=== PATIENT | female | born 1970 | race Caucasian/White ===

== ENCOUNTER 2017-03-05 06:01 | Inpatient (IN) | payer BC ==
[~2017-03-05] VITALS: Ht 152.4 cm; Wt 66.2 kg
[2017-03-05] VITALS (7 sets, daily range): BP systolic 85–136; BP diastolic 79–90
[2017-03-05 06:43] LABS: *BILIRUBIN,URIN NEGATIVE (NEGATIVE); *BLOOD, URINE 3+ (NEGATIVE); *CLARITY,URINE CLOUDY (CLEAR); *COLOR,URINE YELLOW (YELLOW); *KETONES,URINE NEGATIVE (NEGATIVE); *PROTEIN,URINE NEGATIVE (NEGATIVE); *UROBILINOGEN,URINE 0.2 E.U./dl (NORMAL); LEUKOCYTE ESTERASE ,URINE 2+ (NEGATIVE); NITRITE, URINE NEGATIVE (NEGATIVE); PH,URINE 5.5 (5.0-8.0); UGLUCOSE NEGATIVE (NEGATIVE)
[2017-03-05 06:44] LABS: *URINE HCG, QUAL NEGATIVE (NEGATIVE)
[2017-03-05 06:58] LABS: BACTERIA,URINE FEW /HPF (NONE SEEN); MUCUS,URINE FEW /LPF (0-FEW); RBC,URINE TNTC /HPF (0-3); SQUAMOUS EPITHELIAL CELL,UR MODERATE /HPF (NONE SEEN)
[2017-03-05 07:04] LABS: BASOPHILS % (AUTO) 0.4 % (0.0-2.0); EOSINOPHILS # (AUTO) 0.3 K/uL (0.0-0.7); EOSINOPHILS % (AUTO) 3.8 % (0.0-7.0); HEMATOCRIT 31.3 % (37-47); HEMOGLOBIN 10.1 G/DL (12.0-16.0); LYMPHOCYTES # (AUTO) 2.9 K/UL (0.8-4.8); LYMPHOCYTES % (AUTO) 35.3 % (20.5-51.5); MEAN CORPUSCULAR HEMOGLOBIN 25.3 UUG (27.0-31.0); MEAN CORPUSCULAR HGB CONC 32 g/dL (32.0-37.0); MEAN CORPUSCULAR VOLUME 78.1 FL (81.0-99.0); MONOCYTES # (AUTO) 0.6 K/UL (0.1-1.30); MONOCYTES % (AUTO) 7.5 % (0.0-11.0); NEUTROPHILS # (AUTO) 4.5 K/UL (1.8-8.9); PLATELET COUNT (AUTO) 360 K/UL (150-450); WHITE BLOOD COUNT (AUTO) 8.3 K/UL (4.0-11.2)
[2017-03-05 07:13] LABS: CREATININE 0.6 mg/dL (0.6-1.3); POTASSIUM 3.9 mmol/L (3.5-5.1)
[2017-03-05 07:20] LABS: BILIRUBIN,TOTAL 0.2 mg/dL (0.2-1.0); TOTAL PROTEIN, SERUM 6.9 g/dL (6.4-8.2)
[2017-03-05] MEDS ORDERED: FENTANYL CITRATE 250 MCG/5 ML AMPUL ONE (07:40)
[2017-03-05] MEDS ORDERED: MORPHINE SULFATE 4 MG/1 ML DISP.SYRIN ONE (07:41)
[2017-03-05] MEDS ORDERED: SUCCINYLCHOLINE CHLORIDE 200 MG/10 ML VIAL ONE (07:41)
[2017-03-05] MEDS ORDERED: BUPIVACAINE/EPI PF 0.25% 30 ML VIAL ONE (07:42)
[2017-03-05] MEDS ORDERED: KETOROLAC TROMETHAMINE 30 MG INJ IM ONE (07:49)
[2017-03-05] MEDS ORDERED: IV LACTATED RINGERS SOLUTION 1,000 ML BAG MC ONE (07:49)
[2017-03-05] MEDS ORDERED: EPHEDRINE SULFATE 50 MG/ML AMPUL MC ONE (07:49)
[2017-03-05] MEDS ORDERED: PROPOFOL 200 MG/20 ML BOTTLE IV ONE (07:49)
[2017-03-05] MEDS ORDERED: CEFAZOLIN 1 G VIAL MC ONE (07:49)
[2017-03-05] MEDS ORDERED: SEVOFLURANE 250 ML BOTTLE IH ONE (07:49)
[2017-03-05] MEDS ORDERED: LIDOCAINE-MPF 2% 5 ML VIAL MC ONE (07:49)
[2017-03-05] MEDS ORDERED: ONDANSETRON 4 MG/2 ML VIAL IV ONE (07:49)
[2017-03-05] MEDS ORDERED: DEXAMETHASONE SOD PHOSPHATE 4 MG INJ IV ONE (07:49)
[2017-03-05] MEDS ORDERED: NALOXONE HCL 0.4 MG/ML AMPUL IV PRN (10:45)
[2017-03-05] MEDS ORDERED: OXYCODONE HCL 5 MG TABLET PO PRN (10:45)
[2017-03-05] MEDS ORDERED: NORMAL SALINE IV PRN (11:00)
[2017-03-05] MEDS ORDERED: HYDROMORPHONE IV PRN (11:00)
[2017-03-05] MEDS ORDERED: FENTANYL CITRATE 100 MCG/2 ML AMPUL ONE (11:03)
--- NOTE | 2017-03-05 11:06 | NUR ---
RECEIVED PATIENT FROM PACU 46 YEARS OLD FEMALE WITH DX OF HYSTERECTOMY WITH LOWER HORIZONTAL DRESSING INTACT WITH NO DRAINAGE PATIENT IS ALERT ORIENTED WITH O2 AT 2L/M BY NASAL CANULA WITH CONTINUOS PULSE OXIMETRY WITH SATURATION WITHIN NORMAL LIMITS AT THIS TIME.RIGHT HAND HEPLOCK IS INTACT WITH D5LR N PROGRESS FROM PACU.SHE HAS A TOLLIVER CATHETER TO GRAVITY DRAINAGE WITH NO HEMATURIA.DVT PUMPS ARE INTACT.PATIENT HAS ORDER FOR SEMICONDUCTOR DIES LOADER PUMP AWAITING TO START.
[2017-03-05] MEDS ORDERED: MORPHINE SULFATE 10 MG/1 ML DISP.SYRIN IV PRN (12:45)
[2017-03-05] MEDS ORDERED: MORPHINE SULFATE 2 MG/1 ML DISP.SYRIN IV ONE (12:45)
[2017-03-05] MEDS ORDERED: MORPHINE SULFATE 10 MG/1 ML DISP.SYRIN IM PRN (12:45)
--- NOTE | 2017-03-05 12:45 | NUR ---
DIRECTOR OF RETAIL MERCHANDISING PUMP HAS BEEN SET UP BUT PATIENT IS COMPLAINING OF PAIN EVEN AFTER SHE HAS BEEN EDUCATED AND SHE IS USING IT SO I CALLED DR CARMEN WITH ORDERS AND NOTED.
[2017-03-05] MEDS: ONDANSETRON 4 MG/2 ML VIAL IV PRN ×2 (12:50→17:36)
[2017-03-05] MEDS: MORPHINE SULFATE 2 MG/1 ML DISP.SYRIN IV PRN ×2 (12:54→13:29)
[2017-03-05] MEDS ORDERED: IV D5LR 1,000 ML IV ONE (13:15)
[2017-03-05] MEDS ORDERED: IV D5W-LACTATED RINGE 1000 ML BAG IV ONE (13:15)
--- NOTE | 2017-03-05 13:15 | NUR ---
PATIENT WAS RECEIVED FROM PACU WITH A FULL BAG OF D5LR NO NEED TO CHANGE AT THIS TIME.
[2017-03-05] MEDS: CEFAZOLIN 1 G in PREMIXED 1 EACH IV SCH ×2 (13:51→21:20)
--- NOTE | 2017-03-05 18:00 | NUR ---
PATIENT IS RESTING AT THIS TIME WAS MEDICATED 2 TIMES FOR NAUSEA AND WAS HELPFUL.SHE IS EATING HER LIQUIDS DIET AND SEEMS TO BE OKAY.
--- NOTE | 2017-03-05 19:30 | NUR ---
RECEIVED PATIENT LAYING IN BED COMFORTABLY. AT BEDSIDE. SAFETY INITIATED. CALL LIGHT WITHIN REACH. ABDOMINAL DRESSING DRY AND INTACT. ABLE TO MAKE NEEDS KNOWN. WILL CONTINUE TO MONITOR.
[2017-03-05] MEDS: KETOROLAC TROMETHAMINE 30 MG INJ IVP SCH (21:20)
[2017-03-05] MEDS: IV D5LR 1,000 ML IV PRN (21:36)
[2017-03-06 06:46] VITALS: BP 122/84
[2017-03-06 06:52] LABS: BASOPHILS % (AUTO) 0.2 % (0.0-2.0); EOSINOPHILS # (AUTO) 0.1 K/uL (0.0-0.7); EOSINOPHILS % (AUTO) 0.7 % (0.0-7.0); HEMOGLOBIN 9.1 G/DL (12.0-16.0); LYMPHOCYTES # (AUTO) 1.8 K/UL (0.8-4.8); LYMPHOCYTES % (AUTO) 10.4 % (20.5-51.5); MEAN CORPUSCULAR HEMOGLOBIN 25.8 UUG (27.0-31.0); MEAN CORPUSCULAR HGB CONC 33 g/dL (32.0-37.0); MEAN CORPUSCULAR VOLUME 79.2 FL (81.0-99.0); MONOCYTES % (AUTO) 5.5 % (0.0-11.0); NEUTROPHILS # (AUTO) 14.5 K/UL (1.8-8.9); NEUTROPHILS % (AUTO) 83.2 % (38.5-71.5); PLATELET COUNT (AUTO) 335 K/UL (150-450)
[2017-03-06] MEDS: KETOROLAC TROMETHAMINE 30 MG INJ IVP SCH ×2 (07:00→20:11)
[2017-03-06 07:31] LABS: CREATININE 0.7 mg/dL (0.6-1.3)
[2017-03-06 07:35] LABS: RED BLOOD CELL COUNT(AUTO) 3.53 MIL/UL (4.2-5.4); WHITE BLOOD COUNT (AUTO) 17.4 K/UL (4.0-11.2)
[2017-03-06] MEDS: IV D5LR 1,000 ML IV PRN (07:35)
[2017-03-06 07:57] LABS: POTASSIUM 3.4 mmol/L (3.5-5.1)
--- NOTE | 2017-03-06 07:59 | NUR ---
PATIENT SLEPT INTERMITTENTLY THROUGHOUT THE NIGHT. NO ACUTE DISTRESS NOTED. ALL MEDS GIVEN ORDERED. NEEDS MET. SAFETY INITIATED THROUGHOUT THE NIGHT. CALL LIGHT WITHIN REACH.
[2017-03-06 09:48] LABS: BAND % (MANUAL) 5 % (0-10); LYMPHOCYTES % (MANUAL) 13 % (20-40); MONOCYTES % (MANUAL) 6 % (2-10); NEUTROPHILS % (MANUAL) 76 % (42-75)
--- NOTE | 2017-03-06 10:45 | NUR ---
CALLED DR CARMEN RE PLAN OF CARE FOR THE PATIENT TODAY.POTASSIUM IS 3.4 WBC IS 17.4 ACTIVITY LEVEL ?D/C TOLLIVER OR NOT WITH NEW ORDERS AND NOTED.PATIENT EDUCATED AND INSTRUCTED ON NEW ORDERS.TOLLIVER CATH REMOVED AT THIS TIME
[2017-03-06 12:08] VITALS: BP 110/67
[2017-03-06] MEDS: DOCUSATE SODIUM 100 MG CAPSULE PO SCH ×2 (12:13→18:07)
[2017-03-06] MEDS ORDERED: POTASSIUM CHLORIDE 20 MEQ TAB.PRT.SR PO ONE (13:00)
[2017-03-06] MEDS: ACETAMINOPHEN/CODEINE 300-30 MG TABLET PO PRN ×2 (13:34→17:32)
--- NOTE | 2017-03-06 13:45 | NUR ---
PATIENT ATE HER REGULAR TRAY LUNCH AND TOLERATED WELL WITH NO NAUSEA OR VOMITING REPORTED.HER LIQUID ORAL INTAKE HAS BEEN ADEQUATE SO IVF AND SALESPERSON WOMEN'S HATS DILAUDID DISCONTINUED AT THIS TIME.PATIENT IS VOIDING I ADEQUATE AMOUNT OF URINE S/P TOLLIVER CATHETER REMOVAL.
--- NOTE | 2017-03-06 14:23 | NUR ---
DR CARMEN HERE TO SEE PATIENT AND HE REMOVED THE DRESSING FROM ABDOMINAL INCISION AND DONNA IS INTACT WITH NO DRAINAGE AT THIS TIME.
[2017-03-06 15:43] VITALS: BP 95/53
--- NOTE | 2017-03-06 18:00 | NUR ---
PATIENT IS RESTING WITH HIS FAMILY AT HER BEDSIDE COMFORTABLE AND VOIDING EATING AND DRINKING WELL.
[2017-03-06] MEDS ORDERED: BENZOIN TP ONE (18:45)
[2017-03-06] MEDS ORDERED: [UNRECOGNIZED DRUG - OTHER] TP ONE (18:45)
[2017-03-06] MEDS ORDERED: ALOE VERA TP ONE (18:45)
--- NOTE | 2017-03-06 19:40 | NUR ---
RECEIVED PATIENT A&O X'S 4. NO COMPLAINTS OF PAIN OF THIS POINT. INCISION DRY AND INTACT. BRP. ABLE TO MAKE NEEDS KNOWN. SAFETY INITIATED. CALL LIGHT WITHIN REACH. REINFORCED I.S. VITAL SIGNS TAKENM, WNL. WILL CONTINUE TO MONITOR.
[2017-03-06 20:03] VITALS: BP 119/76
[2017-03-07] MEDS: ACETAMINOPHEN/CODEINE 300-30 MG TABLET PO PRN ×2 (02:01→09:53)
--- NOTE | 2017-03-07 07:15 | NUR ---
PT AWAKE IN BED, NO NEEDS AT THIS TIME, IN NO ACUTE DISTRESS. ALL SAFETY AND COMFORT MEASURE ATTENDED TO, CALL LIGHT IN REACH
--- NOTE | 2017-03-07 07:24 | NUR ---
REPORT GIVEN TO AM NURSE. PATIENT SLEPT INTERMITTENTLY THROUGHOUT THE NIGHT. BRP. WALKED TWICE AROUND THE UNIT AROUND 0200. C/O PAIN OF 3/10. WAS ABLE TO TOLERATE AMBULATING. COMFORT AND SAFETY MAINTAINED T/O SHIFT. CALL LIGHT WITHIN REACH. PAIN MANAGED WITH MEDICATIONS.
[2017-03-07] MEDS: DOCUSATE SODIUM 100 MG CAPSULE PO SCH (08:08)
[2017-03-07] MEDS: KETOROLAC TROMETHAMINE 30 MG INJ IVP SCH (08:08)
--- NOTE | 2017-03-07 09:54 | NUR ---
PT COMPLAINING OF HEADACHE 02/24. TYLENOL GIVEN ORDERED FOR PAIN, CALL LIGHT IN REACH, WILL CONTINUE TO MONITOR
[2017-03-07] MEDS ORDERED: MAGNESIUM HYDROXIDE 30 ML LIQUID UDC PO ONE (10:45)
[2017-03-07 12:01] VITALS: BP 91/62
--- NOTE | 2017-03-07 12:16 | NUR ---
OBTAINED TEL/RBO ORDER FOR DISCHARGE. DISCHARGE PROTOCOL FOLLOWED, ORDERS TO FOLLOW UP IN 1 WEEK AND BRING STAPLE REMOVER, STERI STRIPS AND POVIDINE. ALL WERE GIVEN TO PT AND PT AND VERBALIZED UNDERSTANDING TO BRING WITH TO APPOINTMENT. IV REMOVED WITH NO REDNESS OR IRRITATION NOTED. ALL BELONGINGS ACCOUNTED FOR AND RETURNED TO PT. PT TAKEN DOWN IN WHEELCHAIR AND LEFT IN PRIVATE CAR WITH
== END 2017-03-07 12:15 | disposition home or self-care (01) | DRG 743 ==
LOC: DS 06:01 → MED 11:03
PROVIDERS: ADMIT Obstetrics & Gynecology; ATTEND Obstetrics & Gynecology
PROC: 0UTC4ZZ Resection of Cervix, Percutaneous Endoscopic Approach (ICD-10-PCS; principal; 2017-03-05 07:40)
PROC: 0UT94ZZ Resection of Uterus, Percutaneous Endoscopic Approach (ICD-10-PCS; principal; 2017-03-05 07:40)
PROC: 0UB64ZZ Excision of Left Fallopian Tube, Percutaneous Endoscopic Approach (ICD-10-PCS; principal; 2017-03-05 07:40)
DX: D25.9 Leiomyoma of uterus, unspecified (principal); N83.202 Unspecified ovarian cyst, left side; N83.8 Other noninflammatory disorders of ovary, fallopian tube and broad ligament; N87.9 Dysplasia of cervix uteri, unspecified; N92.0 Excessive and frequent menstruation with regular cycle; N92.1 Excessive and frequent menstruation with irregular cycle
CPT/HCPCS: 36415; 84703; 85025; 85730; 86850; 86900; 86901; A4649; A4663; J0330; J0690; J1100; J1170; J1885; J2270; J2405; J3010; J3490; J7120